=== PATIENT | female | born 1990 ===

== ENCOUNTER 2021-08-15 15:40 | Outpatient (CLI) | payer OTHER | END 2021-08-15 17:26 | disposition home or self-care (01) | LOC: PRENATAL 15:40 | PROVIDERS: ATTEND Obstetrics & Gynecology Maternal & Fetal Medicine | DX: O35.0XX1 Maternal care for (suspected) central nervous system malformation in fetus, fetus 1 (principal); O35.3XX1 Maternal care for (suspected) damage to fetus from viral disease in mother, fetus 1; O98.512 Other viral diseases complicating pregnancy, second trimester; O44.02 Complete placenta previa NOS or without hemorrhage, second trimester; Z36.89 Encounter for other specified antenatal screening; Z3A.24 24 weeks gestation of pregnancy ==

== ENCOUNTER 2021-10-10 11:19 | Outpatient (CLI) | payer OTHER | END 2021-10-10 12:09 | disposition home or self-care (01) | LOC: PRENATAL 11:19 | PROVIDERS: ATTEND Obstetrics & Gynecology Maternal & Fetal Medicine | DX: O26.843 Uterine size-date discrepancy, third trimester (principal); O35.0XX1 Maternal care for (suspected) central nervous system malformation in fetus, fetus 1; O44.03 Complete placenta previa NOS or without hemorrhage, third trimester; Z36.89 Encounter for other specified antenatal screening; Z3A.33 33 weeks gestation of pregnancy ==